=== PATIENT | female | born 1995 | race Caucasian/White ===

== ENCOUNTER 2017-07-14 02:05 | Emergency (ER) | payer SELFPAY ==
--- NOTE | 2017-07-14 02:10 | EDPHY ---
H & P Time Seen by Provider: 07/14/17 02:09 HPI/ROS: Chief Complaint: Alcohol intoxication, vomiting HPI: 22-year-old female who was found [place] the [facility] [place] intoxicated. Patient passed out after vomiting. Is unable to ambulate on their own. Patient brought in by EMS for further evaluation. Patient became combative and agitated per EMS. She required physical restraints. No obvious signs of trauma per EMS. Patient is awake alert, clinically intoxicated with slurred words. Patient denies any other past medical history. Denies any other drug use. No falls or complaints at this time. EMS reports that she told them that she had had 2 drinks today. ROS: 10 point Review of Systems is negative except as noted in the HPI. PMH: Denies Medications: Denies Allergies: Unknown Social History: Positive for alcohol Family History: non-contributory Physical Exam: Gen: Awake, slurred speech, smells of alcohol and emesis HEENT: Atraumatic Nose: no epistaxis or deformity Eyes: PERRLA, EOMI Mouth: Moist mucosa Neck: Supple, no step-offs or deformity Chest: Atraumatic, lungs clear to auscultation Heart: S1, S2 normal, no murmur Abd: Soft, non-tender, no guarding Back: Atraumatic Ext: no edema, atraumatic Skin: no rash Neuro: Sensation grossly intact, Strength 5/5 in bilateral upper and lower extremities (Cal Saenz) Constitutional: Initial Vital Signs Temperature (C) 36.7 C 07/14/17 02:10 Heart Rate 135 H 07/14/17 02:10 Respiratory Rate 18 07/14/17 02:10 Blood Pressure 111/70 07/14/17 02:10 O2 Sat (%) 96 07/14/17 02:10 O2 Delivery Mode Nasal Cannula O2 (L/minute) 2 Allergies/Adverse Reactions: No Known Allergies Allergy (Unverified 07/14/17 02:09) Home Medications: Medication Instructions Recorded NK [No Known Home Meds] 07/14/17 Medical Decision Making ED Course/Re-evaluation: Patient become increasingly agitated in the emergency department. She required chemical sedation. Patient given 5 mg of Haldol, 2 mg of Ativan. Patient continues to be agitated and combative. An additional 5 mg of Haldol ordered. Patient is now sleeping. She is out of restraints. She will need re- evaluation when she is awake and able to ambulate. (Cal Saenz) Patient was signed out to me at change of shift. She is ambulating without difficulty. She is clinically sober. She is on an are cold and the police have been called to take her there. (Yosef Espinal) - Data Points Medications Given: Discontinued Medications Haloperidol Lactate (Haldol Injection) 5 mg IM EDNOW ONE Stop: 07/14/17 02:24 Last Admin: 07/14/17 02:24 Dose: 5 mg Haloperidol Lactate (Haldol Injection) 5 mg IM EDNOW ONE Stop: 07/14/17 02:44 Last Admin: 07/14/17 02:35 Dose: 5 mg Sodium Chloride (Ns) 1,000 mls @ 0 mls/hr IV ONCE ONE PRN Reason: Wide Open Stop: 07/14/17 02:47 Last Admin: 07/14/17 02:47 Dose: 1,000 mls Lorazepam (Ativan Injection) 2 mg IM EDNOW ONE Stop: 07/14/17 02:23 Last Admin: 07/14/17 02:24 Dose: 2 mg Lorazepam (Ativan Injection) 1 mg IVP EDNOW ONE Stop: 07/14/17 02:44 Last Admin: 07/14/17 02:44 Dose: 1 mg Departure - Departure Disposition: Home, Routine, Self-Care Clinical Impression: Alcoholic intoxication Qualifiers: Complication of substance-induced condition: uncomplicated Qualified Code(s): F10.920 - Alcohol use, unspecified with intoxication, uncomplicated Condition: Good Instructions: Alcohol Intoxication (ED) Referrals: Patient,NotPresent [Primary Care Provider] - As per Instructions
[2017-07-14] MEDS ORDERED: LORazepam 2 MG/ML INJ ONE (02:13)
[2017-07-14] MEDS ORDERED: HALOPERIDOL LACT 5 MG/ML INJ ONE (02:13)
[2017-07-14] MEDS ORDERED: LORazepam 2 MG/ML INJ IM ONE (02:22)
[2017-07-14] MEDS ORDERED: HALOPERIDOL LACT 5 MG/ML INJ IM ONE ×2 (02:23→02:43)
[2017-07-14] MEDS ORDERED: LORazepam 2 MG/ML INJ IVP ONE (02:43)
[2017-07-14] MEDS ORDERED: NS 1,000 ML IV ONE (02:46)
[2017-07-14 09:05] VITALS: BP 127/80
== END 2017-07-14 10:03 | disposition home or self-care (01) ==
LOC: EDUNIT#
DX: F10.920 Alcohol use, unspecified with intoxication, uncomplicated (principal); R11.10 Vomiting, unspecified
CPT/HCPCS: 96374; J1630; J2060